=== PATIENT | female | born 1950 | race Caucasian/White ===

== ENCOUNTER → 2016-10-10 | Outpatient (CLI) | payer BC ==
[~2016-10-10] MED LIST: CALC1TAB9 PO; CHOL400C PO; COEN1CAP7 PO; LOSA1TAB PO; METR0.7527 EXT; MISCCAP80 PO; MULT-506 PO; OMEG10007 PO; PRVC10 PO
== END | disposition home or self-care (01) ==
LOC: C.RDSM 13:52
PROVIDERS: ATTEND Physical Medicine & Rehabilitation Sports Medicine
DX: M25.551 Pain in right hip (principal)

== ENCOUNTER → 2016-10-12 | Day surgery (SDC) | payer BC ==
[2016-09-13 13:10] VITALS: Ht 158.8 cm; Wt 50.0 kg
[~2016-10-12] VITALS: Ht 158.8 cm; Wt 50.0 kg
[~2016-10-12] MED LIST changes: +ATROPINE SULFATE 0.1 MG/ML 5ML SYR IV PRN; +BUPIVACAINE/EPINEPHRINE 0.5% MPF 1:200,000 30 ML VIAL ONE; +EpHEDrine SULFATE INJ 50 MG/ML AMP IV PRN; +FENTANYL CITRATE INJ 50 MCG/1 ML 2 ML VIAL IV PRN; +FENTANYL CITRATE INJ 50 MCG/1 ML 2 ML VIAL ONE; +LACTATED RINGER'S 1000ML 1,000 ML IV SCH; +LIDOCAINE HCL 1% 20 ML VIAL ONE; +LIDOCAINE HCL 2% 2 ML VIAL (20MG/ML) ONE; +MIDAZOLAM HCL 1 MG/ML 2ML VIAL ONE; +ONDANSETRON INJ 2 MG/ML 2 ML VIAL ONE; +PROPOFOL IV EMULSION 10 MG/ML 20 ML VIAL IV ONE; +SODIUM CHLORIDE 0.9% 1000ML 1,000 ML IV SCH
--- NOTE | 2016-10-12 06:44 | History & Physical Bridge - SC ---
H&P Re-Evaluation Bridge Note: I have examined the patient, reviewed the History & Physical and in the interval since the performance of the History & Physical I have noted the following changes of clinical significance: No changes noted Met with patient and her in waiting room, and patient is " thirsty" but otherwise fine. MOMO
--- NOTE | 2016-10-12 06:47 | [facility] Operative Report ---
Operative Report Operative Date October 12, 2016. Pre-Operative Diagnosis painful orthopedic hardware ( two screws ) right foot Post-Operative Diagnosis same Procedure(s) Performed removal two corticol screws right first metatarsal ( 2.7 ) Surgeon Dr Garay Snowmobile Mechanic Surgeon(s) None Estimated Blood Loss 10 cc Fluids (cc crystalloids) minimal Specimens none = screws given to patient Drains none Anesthesia local with IV sedation -- I provided 9 cc foot block Complication(s) None Disposition Implants none Indications none Description of Procedure incision with prior screw implant removal I attest to the content of the Intraoperative Record and any orders documented therein. Any exceptions are noted below.
[2016-10-12 07:54] VITALS: TEMP 37
--- NOTE | 2016-10-12 08:03 | Discharge Instructions-SurgCtr ---
Discharge Instructions Date of Service October 12, 2016. Visit Reason for Visit: Right Foot Painful Orthopedic Hardware Discharge Discharge Diagnosis / Problem: Provide Dr Garay discharge instructions, when stable DC to house Discharge Goals Goal(s): Decrease discomfort, Specific goals Medications Restart Stopped Medication(s): resume all prior medicines Activity Recommendations Activity Limitations: per Instructions/Follow-up section Lifting Limitations: none, no more than 10 pounds, gradually increase as tolerated, until after follow-up appointment Exercise/Sports Limitations: none, until after follow-up appointment May Resume Sexual Activity: when tolerated Shower/Bathe: keep incision dry Driving or Machine Use: Weightbearing Status: Right non-weightbearing, Right partial Anesthesia . Post Anesthesia Instructions: If you have had General Anesthesia or IV Sedation: * Do not drive today. * Resume driving when surgeon permits. * Do not make important decisions or sign legal documents today. * Call surgeon for: 1. Temperature elevations greater than 101 degrees F. 2. Uncontrollable pain. 3. Excessive bleeding. 4. Persistent nausea and vomiting. 5. Medication intolerance (nausea, vomiting or rash). * For nausea and vomiting use only clear liquids such as: tea, soda, bouillon until nausea subsides, then gradually increase diet as tolerated. * If you have any concerns or questions, call your surgeon's office. If physician is unavailable and it is an emergency, call 911 or go to the nearest emergency room. . Instructions / Follow-Up Instructions / Follow-Up Dr Garay discharge instructions Diet Recommendations Home Diet: no limitations Fluid Restriction: None Procedures Procedures Performed: Right Foot Removal Cortical Screws x2 Pending Studies Studies pending at discharge: no Work Instructions Return To Work: after follow-up Lifting Limitations: no more than 10 pounds School Instructions Return To School: after follow-up Medical Emergencies . Who to Call and When: Medical Emergencies: If at any time you feel your situation is an emergency, please call 911 immediately. . Non-Emergent Contact Non-Emergency issues call your: Specialist Call Non-Emergent contact if: you have a fever, temperature is above 100.5, your pain is not controlled, your pain is worsening, your pain is unusual for you, your pain is concerning you, wound has increased pain, you have any medication questions . . "Provider Documentation" section prepared by Shantanu Garay. . [place] Drug Monitoring Program Drug Monitoring Findings: not applicable -- no Rx provided today
[2016-10-12 08:28] VITALS: BP 115/65; PULSE 59; O2SAT 99
--- NOTE | 2016-10-12 08:31 | Anesthesia Progress Nt - [facility] ---
Anesthesia Post Op Note Date & Time October 12, 2016 at 08:31 Vital Signs Pain Intensity: 0 Vital Signs Past 12 Hours Date Time Temp Pulse Resp B/P Pulse Ox O2 Delivery O2 Flow Rate FiO2 10/12/16 08:28 59 20 115/65 99 Room Air 10/12/16 07:54 37.0 59 20 130/63 96 Room Air 10/12/16 06:34 36.7 75 20 134/83 98 Room Air Notes Mental Status: alert / awake / arousable, participated in evaluation Pt Amnestic to Procedure: Yes Nausea / Vomiting: adequately controlled Pain: adequately controlled Airway Patency, RR, SpO2: stable & adequate BP & HR: stable & adequate Hydration State: stable & adequate Anesthetic Complications: no major complications apparent
--- NOTE | 2016-10-12 08:35 | OPERATIVE REPORT ---
DATE OF OPERATION: 10/12/2016 PREOPERATIVE DIAGNOSIS: Painful orthopedic hardware (2 cortical screws 2.7 diameter ) right first metatarsal). POSTOPERATIVE DIAGNOSIS: Same. PROCEDURE: Excision of two 2.7 cortical screws, right first metatarsal base medially. SURGEON: Dr. Shantanu Garay. DESCRIPTION OF PROCEDURE: The patient was seen preoperatively with her in the waiting room as well as in the preoperative room. There have been no changes in her general medical condition other than that she is seeing Dr. Joya this week and they will be investigating via MRI a "lump" on the right hip. The patient is doing well and is merely thirsty this morning. The patient taken to the operating room and placed on the operative table where anesthesia has provided sedation, after which I have injected 9 mL of 50:50 mixture of 0.5% Marcaine with epinephrine and 2% Xylocaine plain to provide a Pryor block along the first ray. The foot was appropriately prepped and cleaned and no ankle tourniquet was used. REMOVAL OF TWO 2.7 CORTICAL SCREWS, RIGHT FIRST METATARSAL BASE: After palpating the screw heads as well as visualization of their position on x- ray, a 10 blade was used to make an incision through skin and then deepened with 15 blade. Using sharp dissection as well as a periosteal elevator, the first screw was identified and backed out without any incident. There was no cracking of bone; no changes in the appearance of the screw (visually). Intraoperative fluoroscope was used to confirm which first screw was removed and then dissection continued more proximally where the second screw was identified and removed by hand screw distribution driver. The area was then rasped to keep any edges flush and copiously irrigated. Final intraoperative xray taken to confirm removal and no bone damage Subcutaneous simple stitch closure with 3-0 Vicryl and skin closure with 4-0 Ethilon was used. There was some bleeding and oozing through the procedure estimated at about 10 mL maximum. The area was cleansed with Betadine, then Adaptic, 4 x 4s, Josie and Kerlix and Omar bandage were used as dressing. The patient appeared to tolerate both the anesthesia and the procedure without difficulty. Note: patient given screws after autoclave -- no specimen for pathology I attest to the content of the Intraoperative Record and any orders documented therein. Any exceptions are noted below. MTDD
== END | disposition home or self-care (01) ==
LOC: X.SURG 06:14
PROVIDERS: ATTEND Podiatrist Primary Podiatric Medicine
DX: T84.84XA Pain due to internal orthopedic prosthetic devices, implants and grafts, initial encounter (principal); E78.5 Hyperlipidemia, unspecified; M81.0 Age-related osteoporosis without current pathological fracture; Z86.010 Personal history of colon polyps; I10 Essential (primary) hypertension; Z90.710 Acquired absence of both cervix and uterus; Z90.89 Acquired absence of other organs; K21.9 Gastro-esophageal reflux disease without esophagitis; M19.90 Unspecified osteoarthritis, unspecified site; Y79.2 Prosthetic and other implants, materials and accessory orthopedic devices associated with adverse incidents

== ENCOUNTER → 2018-01-19 | Outpatient (CLI) | payer BC ==
[~2018-01-19] MED LIST changes: -ATROPINE SULFATE 0.1 MG/ML 5ML SYR IV PRN; -BUPIVACAINE/EPINEPHRINE 0.5% MPF 1:200,000 30 ML VIAL ONE; -EpHEDrine SULFATE INJ 50 MG/ML AMP IV PRN; -FENTANYL CITRATE INJ 50 MCG/1 ML 2 ML VIAL IV PRN; -FENTANYL CITRATE INJ 50 MCG/1 ML 2 ML VIAL ONE; -LACTATED RINGER'S 1000ML 1,000 ML IV SCH; -LIDOCAINE HCL 1% 20 ML VIAL ONE; -LIDOCAINE HCL 2% 2 ML VIAL (20MG/ML) ONE; -MIDAZOLAM HCL 1 MG/ML 2ML VIAL ONE; -ONDANSETRON INJ 2 MG/ML 2 ML VIAL ONE; -PROPOFOL IV EMULSION 10 MG/ML 20 ML VIAL IV ONE; -SODIUM CHLORIDE 0.9% 1000ML 1,000 ML IV SCH
== END | disposition home or self-care (01) ==
LOC: C.RDSM 08:32
PROVIDERS: ATTEND Physical Medicine & Rehabilitation Sports Medicine
DX: M25.551 Pain in right hip (principal)

== ENCOUNTER 2018-09-30 04:57 | Observation (INO) ==
--- NOTE | 2018-09-08 12:40 | Anesthesiology Consultation ---
Date of Service September 08, 2018 Assessment & Plan (1) Encounter for pre-operative examination: *Pt visibly anxious at [facility] regarding upcoming surgery. Both she and her expressed concern that pt will be very anxious and BP will likely be elevated AM DOS. Pt does not have anxiety at baseline, is only salient in medical settings. Pt may need anxiolytics in pre-op AM DOS. PCP clearance ([facility]) 09/16: Pt seems to be at low cardiac risk for this minor to intermediate surgery and therefore is cleared. Hold Losartan DOS. Chart Review Chart Review: Acceptable Risk for Surgery and Patient seen in Pre Admission [facility] Teaching & Discussion Instructed NPO after midnight before surgery, except medications with 15 cc of water. Medication instructions provided according to the [facility] guidelines. History Surgery Operation Date: 09/30/18 07:00 Proposed Procedures p Right Hip Open Iliopsoas Debridement, - Junior Chavarria MD s Ganglion Excision and Labral Repair and Debridement - Junior Chavarria MD Height/Weight Height: 5 ft 2.5 in Weight: 49.7 kg Allergies Allergy/AdvReac Type Severity Reaction Status Date / Time PEACHES Allergy Intermediate ITCHY Uncoded 08/29/18 10:43 THROAT CHERRYS Allergy Mild ITCHY Uncoded 08/29/18 10:43 THROAT APPLES Allergy Unknown ITCHY EARS Uncoded 08/29/18 10:43 LATEX POWDER Allergy Unknown COUGHING Uncoded 05/01/16 10:53 Medications Home Medications Medication Instructions Recorded Confirmed Last Taken Ca-D3-mag ni-pnrs-bwc-nimisha-bor 1 tab PO QAM 08/29/18 08/29/18 Unknown [Calcium 600-D3 Plus] Multi For Her 50 Plus 1 tab PO QDL 08/29/18 08/29/18 Unknown aspirin [Aspirin Low Dose] 81 mg PO QPM 08/29/18 08/29/18 Unknown aspirin, buffered 650 mg PO DAILY PRN 08/29/18 08/29/18 Unknown coenzyme Q10 [CoQ-10] 100 mg PO BIDM 08/29/18 08/29/18 Unknown hydrocortisone [Anusol-HC] 1 applic DE BID PRN 08/29/18 08/29/18 Unknown losartan 50 mg PO QAM 08/29/18 08/29/18 Unknown methylcellulose (laxative) 500 mg PO QAM 08/29/18 08/29/18 Unknown [Citrucel] metronidazole 1 appful VAGINAL BID 08/29/18 08/29/18 Unknown naproxen sodium [Aleve] 220 - 440 mg PO BID PRN 08/29/18 08/29/18 Unknown omega 1-rki-bdr-fish oil [Fish Oil] 1 cap PO BIDM 08/29/18 08/29/18 Unknown pravastatin 20 mg PO QPM 08/29/18 08/29/18 Unknown Past Medical History Medical History Anxiety History of trigger finger surgery right middle Hyperlipidemia Hypertension Seasonal allergies Past Surgical History Surgical History History of bunionectomy both sides History of colonoscopy History of hysterectomy History of tonsillectomy Past Anesthesia History No Hx of Anesthesia Complications and No Family Hx of Anesthesia Complications History of PONV No Motion Sickness Screening History of Motion Sickness: No Social History Smoking Status: Never smoker Do You Dip or Chew Tobacco: No Hx Alcohol Use: Yes alcohol intake frequency: holidays/special occasions only Hx Substance Use: No Exercise / Class Metabolic Activity II 4-5 Yardwork/Stairs/Walk up hill (Denies CP or SOB with up to 5 flights of stairs, walks about 2 miles per day, and swims) Review of Systems Pt denies any recent chest pain, shortness of breath, palpitations, fever or URI. +mild cough/sneezing, likely allergy related per pt Physical Exam Vital Signs BP: 153/77 P: 69bpm SPO2: 97% RA T: 97.8 F R: 16 ENMT Mouth: + dental restorations (few crowns); no chipped teeth and no loose teeth Thyromental Distance: < 3.5 Finger Breadths (3) Mallampati Class: II Neck + shortened thyromental distance; neck extension not limited Respiratory normal respiratory effort Auscultation: lungs clear to auscultation bilaterally Cardiovascular Rate/Rhythm: regular rate and regular rhythm Heart Sounds: no murmur Vessels: no carotid bruit Testing Electrocardiogram Date: 09/08/18 Findings: + NSR @ (61) Laboratory Results 09/08/18 12:55 09/08/18 12:55 Blood Type B Negative 09/08/18 12:55 Antibody Screen NEGATIVE 09/08/18 12:55 PT 12.0 Seconds (9.0-12.0) 09/08/18 12:55 INR 1.2 (0.9-1.1) H 09/08/18 12:55 APTT 25.6 Seconds (21.0-31.0) 09/08/18 12:55
--- NOTE | 2018-09-08 12:41 | PAT Medication Instructions ---
Medication Instructions Date of Service September 08, 2018 Home Medications Ca-D3-mag pm-yedl-pkz-nimisha-bor 1 tab PO QAM Multi For Her 50 Plus 1 tab PO QDL aspirin [Aspirin Low Dose] 81 mg PO QPM aspirin, buffered 650 mg PO DAILY PRN coenzyme Q10 [CoQ-10] 100 mg PO BIDM hydrocortisone [Anusol-HC] 1 applic OR BID PRN losartan 50 mg PO QAM methylcellulose (laxative) 500 mg PO QAM metronidazole 1 appful VAGINAL BID naproxen sodium [Aleve] 220 - 440 mg PO BID PRN omega 9-nxe-shl-fish oil [Fish Oil] 1 cap PO BIDM pravastatin 20 mg PO QPM ASK your surgeon for instructions aspirin [Aspirin Low Dose] 81 mg PO QPM aspirin, buffered 650 mg PO DAILY PRN naproxen sodium [Aleve] 220 - 440 mg PO BID PRN STOP taking 2 weeks before surgery coenzyme Q10 [CoQ-10] 100 mg PO BIDM STOP taking 24 hours before surgery hydrocortisone [Anusol-HC] 1 applic OR BID PRN metronidazole 1 appful VAGINAL BID DO NOT take the morning of surgery Ca-D3-mag md-exzv-czf-nimisha-bor 1 tab PO QAM Multi For Her 50 Plus 1 tab PO QDL losartan 50 mg PO QAM methylcellulose (laxative) 500 mg PO QAM Take evening before surgery pravastatin 20 mg PO QPM Other Notes If you have any questions please call us at [phone] or [phone] or [phone] or [phone]
[2018-09-08 13:37] LABS: Basophils # (auto) 0.01 K/uL (0-0.2); Basophils % (auto) 0.2 %; Eosinophils # (auto) 0.07 K/uL (0-0.5); Eosinophils % (auto) 1.2 %; Hematocrit (blood only) 38.6 % (37-47); Hemoglobin 13.8 g/dL (12.0-16.0); Immature Granulocytes # (auto) 0.01 K/uL (0.00-0.02); Immature Granulocytes % (auto) 0.2 %; Lymphocytes # (auto) 1.53 K/uL (1.2-3.4); Lymphocytes % (auto) 25.2 %; Mean Corpuscular Hgb Conc 35.8 g/dL (32-36); Mean Corpuscular Volume 84.3 fL (80-100); Mean Platelet Volume 10.8 fL (7.4-10.4); Monocytes # (auto) 0.48 K/uL (0.11-0.59); Monocytes % (auto) 7.9 %; Neutrophils # (auto) 3.96 K/uL (1.4-6.5); Neutrophils % (auto) 65.3 %; Platelet Count 163 K/uL (130-400); RDW Standard Deviation 36.8 fL (36.4-46.3); Red Blood Count 4.58 M/uL (4.2-5.4); White Blood Count 6.06 K/uL (4.8-10.8)
[2018-09-08 13:48] LABS: BUN Creatinine Ratio 16.7 (10-20); Calcium 9.7 mg/dl (8.5-10.1); Creatinine Clr Calc Pharmacy 54.3 ml/min; Est GFR (Non-African American) 76.8; INR 1.2 (0.9-1.1); Partial Thromboplastin Ratio 0.9; Partial Thromboplastin Time 25.6 Seconds (21.0-31.0); Potassium 4.5 mmol/L (3.5-5.1)
--- NOTE | 2018-09-10 18:08 | History and Physical Report ---
DATE OF ADMISSION: 09/30/2018 CHIEF COMPLAINT: Right hip pain. HISTORY OF PRESENT ILLNESS: This 68-year-old white female presents with her for her preoperative history and physical. She is scheduled to undergo a right hip open iliopsoas debridement, ganglion cyst excision, and labral debridement versus repair on 09/30/2018. The patient has a longstanding history of right hip pain. Symptoms began approximately 9 years ago. She was doing vigorous exercise while training for a triathlon and developed pain in the anterior aspect of her right hip. She has been seen by her PCP and had an MRI obtained. She also had an aspiration and injection of the cyst done twice without lasting improvement. Pain is worse with standing and sitting. There is pain with rolling over in bed as well as night pain. No numbness or tingling. X-ray and MRI have been obtained. She has tried NSAIDs as well as activity modification without lasting improvement. Pain is affecting her ADLs. She elects to proceed with surgical intervention in hopes of alleviating her discomfort. PAST MEDICAL HISTORY: Significant for hypertension, elevated cholesterol, osteoarthritis, and GERD. PREVIOUS SURGERIES: Bunionectomy and subsequent hardware removal in both feet, hysterectomy, D&C, breast lumpectomy, tooth extraction 1969, and tonsillectomy in 1959. SOCIAL HISTORY: The patient is . Retired. No tobacco use, rare ETOH use. FAMILY HISTORY: Noncontributory. CURRENT MEDICATIONS: Aleve 220 mg p.o. q. 12 hours p.r.n., aspirin 81 mg p.o. daily, Citracal daily, CoQ10 daily, losartan 50 mg p.o. daily, metronidazole p.r.n., multivitamin daily, omega 3 fatty acids daily, pravastatin 20 mg p.o. daily, Proctosol rectal cream with applicator p.r.n., vitamin D3 daily. ALLERGIES: NKDA. KNOWN ALLERGY TO APPLES, PEACHES AND CATS. REVIEW OF SYSTEMS: A total of 10 systems were reviewed and are significant only for above stated conditions. PHYSICAL EXAMINATION: GENERAL: Well-developed, well-nourished elderly white female in no acute distress. Sitting in a chair. Alert and oriented. SKIN: Warm and dry with good turgor. No rashes or lesions. No ecchymosis or erythema. Firm mass present over the anterior right hip that measures approximately 3 cm in diameter. HEENT: Normocephalic, atraumatic. Eyes PERRLA, EOMI. Nares patent bilaterally without turbinate enlargement. Oropharynx without erythema or exudate. No lesions noted. Uvula midline. Oral mucosa moist. Fair dentition. Fillings and caps are noted. HEART: RRR. No MGR. LUNGS: Clear to auscultation bilaterally. No crackles, rhonchi or wheezing. Good air movement. ABDOMEN: Bowel sounds present x4, soft, nontender. No organomegaly. No masses. MUSCULOSKELETAL: Right hip has no obvious asymmetry or deformity. Small anterior mass as stated. Mild loss of hip flexion as well as internal rotation. External rotation is actually fairly good. Anterior discomfort with hip motion, especially at end range. Strength is 5/5 for resisted flexion, abduction, and adduction. Intact motion to the knee and ankle. Ambulatory with a fairly normal gait. NEUROLOGIC: Gross sensation is intact across the lower extremities via soft touch. Peripheral pulses are 2+. DATA: Radiographic imaging and MRI imaging previously obtained show significant tenosynovial irritation of the iliopsoas tendon extending to the body of the psoas. Labral changes are present. A 2 x 2 x 3 cm cyst is also present. Radiographic imaging shows no significant osteoarthritis of the hip. 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 PLAN: The patient and her were educated regarding today's findings. Conservative care measures were discussed. She will be 23-hour observation at the hospital. Informed written consent will be obtained the morning of surgery. Postoperative prescriptions for Percocet and Coumadin have already been provided. She already has access to crutches and a cane. Preoperative CBC and PRP were ordered. She will also obtain an EKG from her PCP. Medical clearance was requested from Dr. Borrego. The surgery will be performed by Dr. Joya and Dr. Chavarria together.
[2018-09-30] MEDS ORDERED: LR 15ML/HR IV SCH (06:00)
[2018-09-30] MEDS ORDERED: LR 500ML BOLUS, THEN 15ML/HR IV SCH (06:00)
[2018-09-30] MEDS ORDERED: CEFAZOLIN 2000MG 2,000 MG/15 ML SYR IV SCH (06:00)
[2018-09-30] MEDS ORDERED: PROPOFOL IV EMULSION 10 MG/ML 20 ML VIAL IV ONE (06:21)
[2018-09-30] MEDS ORDERED: fentaNYL citrate 100 MCG/2 ML VIAL ONE (06:22)
[2018-09-30] MEDS ORDERED: MIDAZOLAM HCL 1 MG/ML 2ML VIAL ONE (06:22)
[2018-09-30] MEDS ORDERED: BUPIVACAINE 0.5 % 5 MG/1 ML PF 10ML VIAL ONE (06:29)
[2018-09-30] MEDS ORDERED: ATROPINE SULFATE 0.1 MG/ML 10ML SYR IV PRN (06:30)
[2018-09-30] MEDS ORDERED: PHENYLEPHRINE 100MCG/ML 5ML SYR IV PRN (06:30)
[2018-09-30] MEDS ORDERED: HYDROmorphone INJ 1 MG/ML SYRINGE IV PRN (06:30)
[2018-09-30] MEDS ORDERED: ONDANSETRON INJ 2 MG/ML 2 ML VIAL IV PRN ×2 (06:30→09:46)
[2018-09-30] MEDS ORDERED: ePHEDrine sulfate 50 MG/ML AMP IV PRN (06:30)
[2018-09-30] MEDS ORDERED: fentaNYL citrate 100 MCG/2 ML VIAL IV PRN (06:30)
[2018-09-30] MEDS ORDERED: PROMETHAZINE HCL 12.5 MG in SODIUM CHLORIDE 0.9% 50 ML IV PRN (06:30)
[2018-09-30] MEDS ORDERED: POVIDONE-IODINE OP SOLN 30 ML BTL ONE (06:33)
--- NOTE | 2018-09-30 06:38 | History & Physical Bridge Note ---
Date of Service September 30, 2018 History & Physical Bridge Note I have examined the patient, reviewed the History & Physical and in the interval since the performance of the History & Physical I have noted the following changes of clinical significance:consent obtained. no changes noted
[2018-09-30] MEDS ORDERED: ePHEDrine sulfate 50 MG/ML AMP ONE (07:36)
--- NOTE | 2018-09-30 08:12 | Post Operative Brief Note ---
Immediate Post Op Note v1 Date of Surgery September 30, 2018 Pre & Post Diagnosis Operation Date: 09/30/18 07:00 Pre-Op Diagnosis: Right Hip Chronic Ganglion with Iliopsoas Tenosynovitis and Labral Tear Post-Op Diagnosis: Right Hip Chronic Ganglion with Iliopsoas Tenosynovitis and Labral Tear and cam lesion Procedure Operation Date: 09/30/18 07:00 Actual Procedures p Right Hip Open Iliopsoas Debridement,(Right) - Junior Chavarria MD s Right Hip Ganglion Excision and Labral Repair and Debridement osteoplasty femoral neck(Right) - Junior Chavarria MD Surgeon felix Senior Manager olvin perea Estimated Blood Loss 10 Findings Consistent with Post-Op Diagnosis Anesthesia Type Spinal MAC Disposition Accompanied Patient To Recovery: No Disposition: Recovery Room
--- NOTE | 2018-09-30 08:12 | Post Operative Brief Note ---
Immediate Post Op Note v1 Date of Surgery September 30, 2018 Pre & Post Diagnosis Operation Date: 09/30/18 07:00 Pre-Op Diagnosis: Right Hip Chronic Ganglion with Iliopsoas Tenosynovitis and Labral Tear Post-Op Diagnosis: Right Hip Chronic Ganglion with Iliopsoas Tenosynovitis and Labral Tear Procedure Operation Date: 09/30/18 07:00 Actual Procedures p Right Hip Open Iliopsoas Debridement,(Right) - Junior Chavarria MD s Right Hip Ganglion Excision and Labral Repair and Debridement(Right) - Junior Chavarria MD Surgeon Junior Chavarria MD Golf Technician [facility] Estimated Blood Loss 10 Findings Consistent with Post-Op Diagnosis
--- NOTE | 2018-09-30 08:34 | Operative Report ---
Post Operative Report Pre & Post Diagnosis Operation Date: 09/30/18 07:00 Pre-Op Diagnosis: Right Hip Chronic Ganglion with Iliopsoas Tenosynovitis and Labral Tear Post-Op Diagnosis: Right Hip Chronic Ganglion with Iliopsoas Tenosynovitis and Labral Tear Procedure Operation Date: 09/30/18 07:00 Actual Procedures p Right Hip Open Iliopsoas Debridement,(Right) - Junior Chavarria MD s Right Hip Ganglion Excision and Labral Repair and Debridement(Right) - Junior Chavarria MD Surgeon Deon Manufactured Buildings Repairer olvin perea Estimated Blood Loss 10 Findings Consistent with Post-Op Diagnosis Specimens Ganglion cyst and osteoplasty tissue Drains None Anesthesia Type Spinal MAC Complications none Disposition Accompanied Patient To Recovery: No Disposition: Recovery Room Indications Patient 68 years old. She has a large ganglion cyst on the anterior aspect of her right hip. This may be associated with a labral tear. The cyst has been recalcitrant to aspiration and causes her significant symptoms. Dr. Chavarria has been consulted to perform the surgery given his experience and expertise with hip surgery. Description of Procedure For details of the operation referred to Dr. Chavarria's dictation. I was present throughout the procedure and provided assistance with prepping and draping surgical exposure retraction and wound closure. I attest to the content of the Intraoperative Record and any orders documented therein. Any exceptions are noted below.
--- NOTE | 2018-09-30 08:46 | Operative Report ---
DATE OF OPERATION: 09/30/2018 SURGEON: Junior Chavarria MD SENIOR TALENT ACQUISITION SPECIALIST: Dylon Joya MD SECOND SENIOR TALENT ACQUISITION SPECIALIST: Rogelio Villegas PA-C PREOPERATIVE DIAGNOSES: Recalcitrant large anterior cyst/ganglion, right hip with possible femoral acetabular impingement, labral injury. POSTOPERATIVE DIAGNOSES: Recalcitrant large anterior cyst/ganglion, right hip with femoral acetabular impingement, labral injury. OPERATIONS PERFORMED: Open arthrotomy, right hip, Cantu-West approach with excision of the ganglion with the resection of Cam lesion and repair of anterior labral structure, right hip. PERIOPERATIVE SITUATION: Medically cleared female with intractable pain, has been injected multiple times as a very large cyst, its cm in size, very tense, very painful. At this point in time, MRI scan does not reveal the hip is ready for hip replacement, so wished to proceed with surgical excision and try to buy her time to maintain her hip. She is very adamant about not having hip replacement. She was advised that there could be some complications of this including recurrence and numbness around the incision and some weakness of hip flexion. She was also informed about femoral neurovascular bundle. DESCRIPTION OF PROCEDURE: The patient was properly identified, site verified, consent verified. Antibiotics confirmed as being given. The right lower extremity was prepped and draped in usual routine fashion with the patient in the supine position. A Cantu-West incision was then made vertical curving along the anterior spine and down the leg. Total length of the incision was about 6-7 cm. Full thickness flaps were raised. The lateral femoral cutaneous nerve was identified and protected. The fascia was then opened along the medial side of the tensor fascia femoris and the lesion was all incorporated in this area was tediously dissected of all superficial muscle fibers that were attached to it including some of the sartorius, some of the indirect head of the rectus and some of the rectus femoris. Tedious dissection was carried out around the base of the lesion. It was firmly fixed to the anterior capsule, so there was nothing that could be elevated off to make one small area so in order to be safe at the femoral neurovascular bundle. The lesion was evacuated along its center line and then the lesion was excised from inside out. Once it was completely excised, one could see the capsule and the joint was opened with a vertical incision. This was then tracked up to a subchondral cyst formation on the anterior edge of the acetabulum where the labrum was degenerated in that area, but not frankly torn or displaced. This area was elevated with a freer elevator and the area freshened up. A loop stitch was then placed around that. A small Cam lesion was then excised off the anterior neck of the femur. Care taken not to be too aggressive due to her petite size. Once this was done, the hip was placed through range of motion. There was no impingement. The wound was then irrigated multiple times and then using the drill, a 2.9 x 12.5 mm PushLock anchor hole was drilled. It was verified that it was all in bone, placed a guidewire in that, moved the hip around. There were no problems. The wound was then irrigated one final time. The stitch was then anchored down with the anchor and it lifted the labrum nicely and kept it down onto the anterior acetabular neck. The wound was irrigated one final time. The capsule was then closed with 0 Vicryl. The fascia was closed with 2-0 Vicryl, care taken to protect the lateral femoral cutaneous nerve, subcutaneous layer with 2-0 plain and the skin with stainless steel clips. EBL was 10 mL. DVT prophylaxis with Coumadin. She will be touchdown weightbearing for 4-6 weeks due to the small Cam resection and her petite size. No instability precautions at this point and follow up in 2 weeks for staple removal. This is the right hip. Again, the operation is arthrotomy right hip, excision of large anterior hip ganglion, resection of Cam lesion and repair of labral degeneration. I attest to the content of the Intraoperative Record and any orders documented therein. Any exceptions are noted below. MARY
--- NOTE | 2018-09-30 09:08 | Anesthesiology Progress Note ---
Date of Service September 30, 2018 Anesthesia Post Procedure Vital Signs Vital Signs: Temp Pulse Pulse Resp BP Pulse Ox 09/30/18 08:55 37.4 C 61 16 129/61 98 09/30/18 08:45 61 16 129/61 98 09/30/18 08:35 62 13 127/63 98 09/30/18 08:25 65 14 126/66 100 09/30/18 08:16 36.7 C 71 15 116/59 L 100 09/30/18 05:28 36.5 C 70 18 162/71 H 99 Notes Mental Status: alert / awake / arousable Patient Amnestic to Procedure: Yes Nausea / Vomiting: adequately controlled Pain: adequately controlled Airway Patency, RR, SpO2: stable & adequate BP & HR: stable & adequate Neuraxial Anesthesia: was administered and sensory block is resolving Anesthetic Complications: no major complications apparent Notes: Awake, doing well, VSS.
[2018-09-30] MEDS ORDERED: cefTRIAXone SODIUM 1,000 MG in DEXTROSE 5% 50 ML IV ONE (09:15)
--- NOTE | 2018-09-30 09:19 | XRay Report ---
XR hip 1V RT w pelvis CLINICAL HISTORY: Right hip s/p cam resection COMPARISON: None. DISCUSSION: The bones and joint spaces appear intact. There is no evidence of fracture, dislocation o r bony disease. There is no evidence for soft tissue swelling. Expected postoperative soft tissue tony nge IMPRESSION: Expected soft tissue postoperative change adjacent to the right hip. No acute bony abnorm alities appreciated. The above report was generated using voice recognition software. It may contain grammatical, syntax or spelling errors. Electronically signed by: Liang Peña M.D. 09/30/2018 9:18 AM
[2018-09-30] MEDS ORDERED: SODIUM CHLORIDE 0.9% 1000ML 1,000 ML IV SCH (09:46)
[2018-09-30] MEDS ORDERED: ASPIRIN/ALUM/MAGNES/CAL CARB 325 MG TAB PO PRN (09:46)
[2018-09-30] MEDS ORDERED: ALUMINUM/MAGNESIUM SUSP 30 ML UDC PO PRN (09:46)
[2018-09-30] MEDS ORDERED: BISACODYL 10 MG SUPP PR PRN (09:46)
[2018-09-30] MEDS ORDERED: HYDROmorphone INJ 0.5 MG/0.5 ML SYR IV PRN (09:46)
[2018-09-30] MEDS ORDERED: DiphenhydrAMINE HCL 50 MG/ML VIAL IV PRN (09:46)
[2018-09-30] MEDS ORDERED: MAGNESIUM HYDROXIDE SUSP 30 ML UDC PO PRN (09:46)
[2018-09-30] MEDS ORDERED: METOCLOPRAMIDE HCL INJ 5 MG/ML 2 ML VIAL IV PRN (09:46)
[2018-09-30] MEDS ORDERED: NALOXONE HCL 0.4 MG/1 ML VIAL/CARP IV PRN (09:46)
[2018-09-30] MEDS ORDERED: CA D3 MAG OX ZINC COP MANG BOR PO SCH (09:46)
[2018-09-30] MEDS ORDERED: HYDROCORTISONE HC 2.5% CRM 30GM TUBE EXT PRN (09:46)
[2018-09-30] MEDS ORDERED: KETOROLAC TROMETHAMINE 15 MG/ML VIAL IV PRN (09:46)
[2018-09-30] MEDS: OXYCODONE HCL IR 5 MG TAB (IMMEDIATE RELEASE) PO PRN ×2 (10:42→17:18)
[2018-09-30] MEDS: LOSARTAN POTASSIUM 50 MG TAB PO SCH (10:42)
[2018-09-30] MEDS: DOCUSATE SODIUM 100 MG CAP PO SCH ×2 (10:42→21:02)
[2018-09-30] MEDS ORDERED: CEROVITE ADV FORMULA TAB PO SCH (11:30)
--- NOTE | 2018-09-30 13:36 | Progress Note ---
DATE: 09/30/2018 SUBJECTIVE: Status post excision of periarticular hip ganglion with labral repair and Cam resection, right hip. The patient is sitting up in bed comfortably, is eating and drinking. IVs Hep-Lock. Postop x-rays look excellent. OBJECTIVE: Wound dressing clean, dry and intact. Sensory exam: Femoral sciatic nerve is normal. Hip rotation is distended, but no significant pain. ASSESSMENT: Doing well. Continue with overnight stay based on spinal, based on potential need for pain management. Mobilize can be toe-touch partial weightbearing right lower extremity with a walker. As outpatient PT tomorrow at 10:30 at [facility] orthopedics. Discharge prior to that. Likely leave her on no later than 10:00 a.m.
--- NOTE | 2018-09-30 13:40 | Discharge Summary ---
CHIEF COMPLAINT: Right hip pain. HISTORY OF PRESENT ILLNESS: Admitted for elective excision of a paraganglion cyst, labral repair and Cam resection of right hip. At this point in time, she has done well. She is ambulatory, eating, drinking. Femoral sciatic nerve function is normal. PAST MEDICAL HISTORY: Remarkable for hypertension, elevated cholesterol, osteoarthritis, GERD. PAST SURGICAL HISTORY: Include bunionectomy, hardware removal, hysterectomy, breast lumpectomy, tooth extraction, tonsillectomy. SOCIAL HISTORY: Reveals she is , retired. No tobacco or alcohol use. FAMILY HISTORY: Noncontributory. PREADMISSION MEDICATIONS: Include Aleve, aspirin 81 mg daily, Citracal, losartan, metronidazole, multivitamin, omega-3 fatty acids, pravastatin, Proctosol rectal cream, vitamin D3. Will be discharged on aspirin 325 daily for DVT/PE prophylaxis. ALLERGIES: None to drugs, KNOWN ALLERGY TO APPLES, PEACHES AND CAT. REVIEW OF SYSTEMS: Noncontributory. PHYSICAL EXAMINATION: Pertinent reveals intact femoral sciatic nerve functioning. Wound dressing clean, dry and intact. Hip rotation is supple and pain free. Minor muscle tenderness from surgery. Postop x-rays look good. ASSESSMENT: Overall, doing well. We will discharge to home tomorrow. We prepared for discharge by 09:50 so she can be an outpatient PT by 10:15 tomorrow. DVT prophylaxis with aspirin 325 daily.
[2018-09-30] MEDS: ACETAMINOPHEN 500 MG TAB PO SCH ×2 (13:43→21:02)
[2018-09-30] MEDS ORDERED: NON-FORMULARY MEDICATION (Coenzyme Q10 [Coq-10] 100 MG) PO SCH (17:00)
[2018-09-30] MEDS ORDERED: ASPIRIN 81 MG ECTAB PO SCH (21:00)
[2018-09-30] MEDS ORDERED: SENNA 8.6 MG TAB PO SCH (21:00)
[2018-09-30] MEDS ORDERED: PRAVASTATIN SOD 20 MG TAB PO SCH (21:00)
[2018-10-01] MEDS: ACETAMINOPHEN 500 MG TAB PO SCH (05:17)
[2018-10-01] MEDS: LOSARTAN POTASSIUM 50 MG TAB PO SCH (05:17)
--- NOTE | 2018-10-01 07:44 | Progress Note ---
DATE: 10/01/2018 SUBJECTIVE: Postop day #1 status post right hip ganglion excision, labral repair impingement procedure, right hip. Did well overnight. She denies any chest pain, shortness of breath, fever, chills, nausea, vomiting, or headache. Vital signs are stable. She is afebrile. OBJECTIVE: Neurovascular check femoral sciatic nerve is normal. Wound dressing intact. Has some scant drainage. That will be changed later this morning. Calf is nontender. Abdomen is soft, nontender. ASSESSMENT: Doing well. Discharge to home today for outpatient PT and wound dressing change at 10:30 a.m., must be leaving in the hospital by 10.
--- NOTE | 2018-10-01 08:12 | Anesthesiology Progress Note ---
Date of Service October 01, 2018 Anesthesia Post Procedure Vital Signs Vital Signs: Temp Pulse Pulse Resp BP Pulse Ox 10/01/18 03:16 37.0 C 62 14 113/62 96 09/30/18 23:03 37.0 C 73 14 126/57 L 94 09/30/18 20:20 36.9 C 71 16 136/65 97 09/30/18 16:00 36.9 C 66 16 118/62 97 09/30/18 12:30 60 16 121/65 99 09/30/18 11:30 36.5 C 73 16 153/75 H 98 09/30/18 10:26 36.6 C 65 15 139/71 95 09/30/18 10:00 64 15 123/73 97 09/30/18 09:30 36.5 C 66 16 135/71 97 09/30/18 09:15 37.4 C 62 12 127/66 97 09/30/18 09:05 37.4 C 65 12 129/74 97 09/30/18 08:55 37.4 C 61 16 129/61 98 09/30/18 08:45 61 16 129/61 98 09/30/18 08:35 62 13 127/63 98 09/30/18 08:25 65 14 126/66 100 09/30/18 08:16 36.7 C 71 15 116/59 L 100 Pain Intensity Right Hip: Pain Intensity: 2 Notes Mental Status: alert / awake / arousable Patient Amnestic to Procedure: Yes Nausea / Vomiting: improving with treatment Pain: adequately controlled Airway Patency, RR, SpO2: stable & adequate BP & HR: stable & adequate Hydration State: stable & adequate Neuraxial Anesthesia: was administered and sensory block resolved Anesthetic Complications: no major complications apparent
[2018-10-01] MEDS: DOCUSATE SODIUM 100 MG CAP PO SCH (08:16)
--- OUTSIDE RECORDS SUMMARY | 2018-10-06 15:51 | External Medical Summary | Continuity of Care Document ---
:1950 Author Name Elisabeth Underwood, Provider Address Unavailable Unavailable , Care Team Providers Name Role Phone Faheem Underwood, Liang Unavailable [email or web address] Unavailable Unavailable Unavailable Unavailable Unavailable Problems Postmenopausal atrophic vaginitis (627.3) (N95.2) Encounter for routine gynecological exam ination with Papanicolaou smear of cervix (V72.31) (Z01.419) Urinary tract infection (599.0) (N39.0) Cervical stricture or stenosis (622.4) (N88.2) Endometrial polyp (621.0) (N84.0) Menopause (627.2) (Z78.0) Mammogram abnormal (793.80) (R92.8) Postmenopausal bleeding (627.1) (N95.0) Allergies and Adverse Reactions No Known Drug Allergies (Allergy) Pollen (Allergy) Medications Multiple Vitamin TABS Refills: 0 Vitamin D 1000 UNIT Oral Tablet Refills: 0 Patricio/Mag Citrate TABS Refills: 0 Procedures History of Lipectomy Of Arm Status: Comp leted Immunizations Immunizations not documented Social History - Smoking Status Never smoker Plan of Treatment Planned Observations Planned Goals not documented Results No Known Results Results not documented
== END 2018-10-01 10:07 | disposition home or self-care (01) ==
LOC: ASU 04:57 → 3E 04:57